=== PATIENT | male | born 1960 | race Caucasian/White ===

== ENCOUNTER → 2018-03-11 | Day surgery (SDC) | payer BC ==
[2018-03-09 16:26] VITALS: BMI 23.0
[~2018-03-11] MED LIST: LACTATED RINGERS 1,000 ML IV SCH; LIDOCAINE 1% 20 ML VIAL (10MG/ML) FOR IV START INTRADERMA PRN; LIDOCAINE 1% INJ 10MG/ML (20 ML MDV) ONE; PROPOFOL 10 MG/ML 20 ML VIAL IV ONE
--- NOTE | 2018-03-11 07:07 | P.GSHP ---
History of Present Illness H&P Date: 03/11/18 CHIEF COMPLAINT: Colon screen HISTORY OF PRESENT ILLNESS: The patient is a 57-year-old male who presents for colon screen. Lower endoscopy was offered for further evaluation and management. PAST MEDICAL HISTORY: Please see list. PAST SURGICAL HISTORY: Please see list. MEDICATIONS: Please see list. ALLERGIES: Please see list. SOCIAL HISTORY: No illicit drug use FAMILY HISTORY: No reports of Crohn disease or ulcerative colitis. REVIEW OF ORGAN SYSTEMS: CONSTITUTIONAL: No reports of fevers or chills. PHYSICAL EXAM: VITAL SIGNS: Stable GENERAL: Well-developed pleasant in no acute distress. HEENT: No scleral icterus. Extraocular movements grossly intact. Moist buccal mucosa. NECK: Supple without lymphadenopathy. CHEST: Unlabored respirations. Equal bilateral excursions. CARDIOVASCULAR: Regular rate and rhythm. Distal 2+ pulses. ABDOMEN: Soft, nontender, nondistended. MUSCULOSKELETAL: No clubbing, cyanosis, or edema. ASSESSMENT: 1. Colon screen. PLAN: 1. Recommend proceeding with a lower endoscopy Past Medical History Past Medical History: Eye Disorder, GERD/Reflux, Hypertension Additional Past Medical History / Comment(s): takes aldactone for fluid build up in elsi eyes,macular degeneration elsi eye,legally blind left eye History of Any Multi-Drug Resistant Organisms: None Reported Past Surgical History: Back Surgery, Orthopedic Surgery Additional Past Surgical History / Comment(s): Eye surg.; colonoscopy,pain procedures back,shoulder surg x4 Past Anesthesia/Blood Transfusion Reactions: No Reported Reaction Smoking Status: Never smoker - Past Family History Brother(s) Family Medical History: Cancer Medications and Allergies Home Medications Medication Instructions Recorded Confirmed Type Spironolactone 25 mg PO BID 11/15/15 03/09/18 History amLODIPine [Norvasc] 10 mg PO QAM 11/15/15 03/09/18 History Allergies Allergy/AdvReac Type Severity Reaction Status Date / Time No Known Allergies Allergy Verified 03/09/18 16:17
[2018-03-11 08:48] VITALS: TEMP 97.2
--- NOTE | 2018-03-11 09:42 | P.PCN ---
Date of Procedure: 03/11/18 Description of Procedure: PREOPERATIVE DIAGNOSIS: Colonoscopy screening. Family history colon cancer, youngest brother Personal history of colon polyps POSTOPERATIVE DIAGNOSIS: Colonoscopy screening. Family history colon cancer, youngest brother Personal history of colon polyps External hemorrhoids, grade 3 Sigmoid volvulus OPERATION: Colonoscopy to the splenic flexure. SURGEON: Jennifer Valadez MD. ANESTHESIA: MAC. INDICATIONS: The patient is a 57-year-old male who presents for colonoscopy screening. His last colonoscopy was 5 years ago. Benefits and risks were described and informed consent was obtained. DESCRIPTION OF PROCEDURE: The patient had undergone Gatorade, MiraLAX and Dulcolax prep. He had been brought into the operating room and laid in the left lateral decubitus position. After adequate intravenous sedation, the rectum was examined with 2% lidocaine jelly. External hemorrhoids were encountered. The prostate was smooth and without abnormalities. The rectal tone was within normal limits. No lesions were palpated in the rectal vault. An Olympus colonoscope was advanced through a tortuous sigmoid colon. Moderate twisting of the sigmoid colon was identified up to the splenic flexure. The patient was repositioned supine along his back to allow passage of the scope beyond the splenic flexure. Despite abdominal pressure and additional maneuvers, he had extremely tight tortuosity at the splenic flexure. The prep was excellent with clear visualization of the mucosal folds. Secondary to the tortuosity of the colon, high suspicion of sigmoid colonic volvulus was identified. The scope was removed with visualization of each mucosal fold. No scattered diverticulosis was encountered. No colonic polyps were found distal to the splenic flexure. No evidence of focal colitis was found. Retroflexion of the scope demonstrated grade 2 internal hemorrhoids without active bleeding or inflammation. The colon was desufflated. The patient had tolerated the procedure well. Withdrawal time was over 6 minutes. FINDINGS: Internal hemorrhoids, grade 2 External prolapsed hemorrhoids, grade 3 No arteriovenous malformations. No adenomatous polyps. No focal colitis. No sigmoid diverticulosis. Tortuosity of colon highly suspicious for colonic volvulus. RECOMMENDATIONS: Recommend barium enema, immediate. Will need repeat colonoscopy in 3 years, 2020, due to high personal and familial risks Plan - Discharge Summary New Discharge Prescriptions: No Action amLODIPine [Norvasc] 10 mg PO QAM Spironolactone 25 mg PO BID Discharge Medication List Spironolactone 25 mg PO BID 11/15/15 [History] amLODIPine [Norvasc] 10 mg PO QAM 11/15/15 [History]
[2018-03-11 09:46] VITALS: RESP 16
[2018-03-11 10:01] VITALS: BP 158/80; PULSE 60
--- NOTE | 2018-03-11 13:36 | FL ---
EXAMINATION TYPE: FL barium enema DATE OF EXAM: 03/11/2018 COMPARISON: NONE HISTORY: Incomplete colonoscopy to the splenic flexure with no biopsies. TECHNIQUE: A single contrast barium enema study is performed. 2 minutes and 15 seconds of fluoroscop y time was utilized with 50 images saved. FINDINGS: Industrial Cleaning Technician view of the abdomen shows overall non-obstructive bowel gas pattern gaseous distenti on the bowel from recent colonoscopy and surgical fusion of the lumbar spine. No evidence of any mass or polyp, obstructing or constricting lesion throughout the colon. Within the transverse colon a focal area of luminal narrowing was seen, however this area opens and appears pat ent on multiple images after further instillation of contrast much improving after supine positioning . Therefore this relates to colonic spasm. No persistent luminal narrowing is seen throughout the col on. No significant diverticular disease is noted. The terminal ileum was refluxed and appears within normal limits. IMPRESSION: Focal area of intermittent colonic spasm with no evidence of obstruction, mass, or diver ticular disease.
== END | disposition home or self-care (01) ==
LOC: ORWHC2ENDO 07:58
PROVIDERS: ATTEND Surgery Plastic and Reconstructive Surgery
DX: Z12.11 Encounter for screening for malignant neoplasm of colon (principal); K56.2 Volvulus; K64.4 Residual hemorrhoidal skin tags; K64.2 Third degree hemorrhoids; I10 Essential (primary) hypertension; K21.9 Gastro-esophageal reflux disease without esophagitis; Z79.899 Other long term (current) drug therapy; Z80.0 Family history of malignant neoplasm of digestive organs; Z86.010 Personal history of colon polyps
CPT/HCPCS: 45378; 74270

== ENCOUNTER → 2018-09-18 | Outpatient (CLI) | payer BC ==
[2018-09-18 16:51] LABS: Albumin 4.4 g/dL (3.80-4.90); Albumin/Globulin Ratio 2.44 (1.20-2.10); Anion Gap 9.8 mmol/L (4.00-12.00); Calcium 9.4 mg/dL (8.7-10.3); Carbon Dioxide 24.2 mmol/L (21.6-31.8); Globulin 1.8 g/dL (2.1-3.7); Potassium 4.4 mmol/L (3.5-5.5); Total Bilirubin 0.6 mg/dL (0.3-1.2); Total Protein 6.2 g/dL (6.2-8.2)
== END | disposition home or self-care (01) ==
LOC: LABWHC1 08:14
PROVIDERS: ATTEND Ophthalmology Retina Specialist
DX: H20.019 Primary iridocyclitis, unspecified eye (principal)
CPT/HCPCS: 36415; 80053

== ENCOUNTER 2020-01-19 07:40 | Day surgery (SDC) | payer BC ==
[2020-01-17 12:21] VITALS: BMI 23.0
[2020-01-19] MEDS ORDERED: DEXAMETHASONE SOD PHOSPHATE 10 MG/ML 1 ML VIAL IV ONE (07:47)
[2020-01-19] MEDS ORDERED: SCOPOLAMINE 1.5MG/72HR PATCH TRANSDERM ONE (07:47)
[2020-01-19] MEDS ORDERED: ONDANSETRON 4 MG/2 ML VIAL IVP ONE (07:47)
[2020-01-19] MEDS ORDERED: LIDOCAINE 1% (10MG/ML) FOR IV START INTRADERMA PRN (07:47)
[2020-01-19] MEDS ORDERED: LACTATED RINGERS 1,000 ML IV SCH (07:47)
[2020-01-19] MEDS ORDERED: LACTATED RINGERS 1,000 ML IV ONE ×2 (07:56→11:10)
[2020-01-19] MEDS ORDERED: MIDAZOLAM 2 MG/2 ML VIAL IVP ONE (10:13)
[2020-01-19] MEDS ORDERED: LIDOCAINE 1% INJ 10MG/ML (20 ML MDV) ONE (10:59)
[2020-01-19] MEDS ORDERED: SUCCINYLCHOLINE CHLORIDE 100 MG/5 ML SYR IV ONE (10:59)
[2020-01-19] MEDS ORDERED: ROPIVACAINE 5 MG/ML 30 ML VIAL ONE (10:59)
[2020-01-19] MEDS ORDERED: MIDAZOLAM 2 MG/2 ML VIAL ONE (10:59)
[2020-01-19] MEDS ORDERED: PROPOFOL 10 MG/ML 20 ML VIAL IV ONE (10:59)
[2020-01-19] MEDS ORDERED: fentaNYL (PF) 50 MCG/ML 2 ML AMP ONE (10:59)
--- NOTE | 2020-01-19 11:30 | P.ANPRN ---
Procedure Note - Anesthesia - Nerve Block Performed Right Popliteal Date of Procedure: 01/19/20 Procedure Start Time: 10:07 Procedure Stop Time: 10:18 Location of Patient: PreOp Indication: Acute Post-Operative Pain, Requested by Surgeon (Dr Woods) Sedation Type: Sedate with meaningful contact maintained Preparation: Sterile Prep Position: Left Lateral Catheter: None Needle Types: Pajunk Needle Gauge: 21 Ultrasound used to visualize needle placement: Yes Ultrasound used to observe medication spread: Yes Injectate: 0.5% Ropivacaine (see comment for volume) (20cc incrementally) Blood Aspirated: No Pain Paresthesia on Injection Noted: No Resistance on Injection: Normal Image Stored and Saved: Yes Events: Uneventful and Well Tolerated
--- NOTE | 2020-01-19 12:31 | P.OP ---
Date of Procedure: 01/19/20 Preoperative Diagnosis: Closed right supination adduction bimalleolar ankle fracture Postoperative Diagnosis: Same Procedure(s) Performed: 1. Open reduction and internal fixation right bimalleolar ankle fracture 2. Manual application of joint stress by physician for radiography, right ankle 3. Application of short leg splint by physician, right ankle Anesthesia: grover GUERRERO Surgeon: Ted Rashid Front Desk Assistant #1: Vernell Zaragoza Estimated Blood Loss (ml): 10 IV fluids (ml): 1,200 Pathology: none sent Condition: stable Disposition: PACU Indications for Procedure: The patient is a very pleasant previously healthy 59-year-old male who sustained a right ankle fracture a week ago. He was seen in our office where x-rays were taken showing an unstable ankle fracture. He was placed in a splint and follow- up was arranged in my office. I met with the patient and his to discuss treatment. I recommended open reduction internal fixation. We discussed the potential risks and competitions of surgery including and not limited to risk of anesthesia, infection, delayed wound healing, damage to local blood vessels or nerves, nonunion, malunion, symptomatically hardware, posttraumatic arthritis, hardware failure and late displacement, DVT, PE, other medical complications, and inability to regain preinjury level of function, need for further surgery, and possibly loss of life or limb. The patient and his understand that while these are the most common complications other, less common competitions are possible. They provided their verbal and written consent to go forward with surgery. Description of Procedure: The patient was identified in preoperative holding and the correct right ankle was marked with my initials. I reviewed the consent form with the patient and his . All their questions were answered. A block was given by anesthesia. The patient was then brought back to the operating room. He was positioned on the OR table where a general anesthetic and preoperative antibiotics were given. A tourniquet was applied the proximal aspect of the right leg. A bump was placed in the right buttock internally rotating the leg to neutral. A ramp was placed under the right leg to facilitate imaging. The left leg was secured to the table with foam and tape. The right leg was then prepped and draped in the standard sterile fashion. Prior to starting surgery timeout was performed identifying the correct patient, operative extremity, and procedure. The patient's leg was then elevated, exsanguinated with an Esmarch, and the tourniquet was inflated to 250 mmHg. I began by outlining a longitudinal incision directly over the medial malleolus. Skin incision made with a scalpel and dissection was carried down carefully to the subcutaneous tissue with tenotomy scissors. The periosteum over the medial malleolus was sharply incised. The apex of the fracture was identified. There is a small amount of comminution. The fracture margins were gently exposed. I booked open the vertical fracture and removed early consolidating hematoma. There is a small amount of marginal impaction which was removed. The apex of the fracture was then keyed in and held reduced with two 0.0625 K wires placed anteriorly and posteriorly. I then placed a 5 hole one third tubular plate to use as an anti-glide device over the fracture. A nonlocking 3.5 mm screw was placed just proximal to the fracture bringing the plate down to bone. I then placed a lag screw through the most distal hole of the plate at the level of the physeal scar. A final nonlocking screw was placed in the most proximal hole of the plate. Attention was then turned to lateral malleolus. With gentle stress of the ankle there is minimal displacement and with static nonstress views the f ibula fracture was essentially nondisplaced so rather than expose the fracture I elected to place a nonlocking lag screw through the tip of the fibula. A stab incision was made just distal to the tip of the fibula and a 3.5 mm drill was centered on the AP and lateral view. The drill was brought up to the fracture. A nonlocking 3.5 mm screw measuring 70 mm was placed generating excellent compression of the fracture. A manual external rotation stress x-ray was performed and showed no widening or displacement of the talus and the plafond. Both wounds were thoroughly irrigated and closed in layers. A sterile dressing was applied followed by a well-padded bulky Ellis splint with the ankle in neutral. The patient was awoken from his anesthetic, transferred to a gurney, and brought to recovery haven't helped procedure well. Vernell Zaragoza PA-C was required as a skilled business assistant for patient positioning, surgical exposure, retraction, placement of hardware, and application of splint.
--- NOTE | 2020-01-19 12:41 | XR ---
Fluoroscopy History: RIGHT ANKLE FX right ankle fx 2 min 12 sec FL
[2020-01-19 12:48] VITALS: TEMP 97.7
[2020-01-19] MEDS: HYDROmorphone 0.5 MG/0.5 ML SYRINGE IVP PRN ×2 (12:54→13:00)
[2020-01-19 13:29] VITALS: RESP 18
[2020-01-19 13:46] VITALS: BP 138/78; PULSE 67
== END 2020-01-19 14:05 | disposition home or self-care (01) ==
LOC: OR 07:40
PROVIDERS: ATTEND Orthopaedic Surgery
DX: S82.841A Displaced bimalleolar fracture of right lower leg, initial encounter for closed fracture (principal); I10 Essential (primary) hypertension; K21.9 Gastro-esophageal reflux disease without esophagitis; H91.90 Unspecified hearing loss, unspecified ear; Z79.899 Other long term (current) drug therapy; Z97.3 Presence of spectacles and contact lenses; Z98.890 Other specified postprocedural states; Z83.3 Family history of diabetes mellitus; Z82.49 Family history of ischemic heart disease and other diseases of the circulatory system; W11.XXXA Fall on and from ladder, initial encounter
CPT/HCPCS: 27814; 64450; 76942; 84132; 73610; C1713; J2250; J1100; J0690; J2405; J2001; J3010; J2795; J0330; J2704; J1170; 64445

== ENCOUNTER → 2024-03-17 | Outpatient (CLI) | payer BC ==
--- NOTE | 2024-03-17 11:43 | XR ---
EXAMINATION TYPE: XR ribs bilat w pa chest xray DATE OF EXAM: 03/17/2024 COMPARISON: NONE HISTORY: Pain TECHNIQUE: Frontal view of the chest and 8 views of the ribs are obtained bilaterally FINDINGS: Lungs are clear. There is no sizable pneumothorax or consolidation. Patient prominence of t he ascending aortic region. Postsurgical change vertebral column. Arthropathy of the shoulders. Previ ous surgery left shoulder. There appears to be cortical offset of the anterior margin of the left seventh, eighth and ninth ribs suspicious for fractures. Deformity involving the anterior margin of the right fifth and sixth ribs appear chronic. IMPRESSION: 1. There are mildly displaced fractures involving the anterolateral seventh, eighth and ninth ribs. 2. Deformities involving the anterior margin of the right fifth and sixth ribs appear more chronic. C orrelate with point tenderness to exclude hairline fracture.
== END | disposition home or self-care (01) ==
LOC: RADXRMAIN 11:06
PROVIDERS: ATTEND Nurse Practitioner Family
DX: M95.4 Acquired deformity of chest and rib (principal)
CPT/HCPCS: 71111

== ENCOUNTER 2024-03-18 17:23 | Emergency (ER) | payer BC ==
[2024-03-18 17:34] VITALS: BP 131/79; PULSE 80; RESP 18; TEMP 98.1
--- NOTE | 2024-03-18 17:54 | ED ---
Chest Pain HPI - General Chief Complaint: Chest Pain Stated Complaint: rib injury, sent by PCP Time Seen by Provider: 03/18/24 17:53 Source: patient Mode of arrival: ambulatory Limitations: no limitations - History of Present Illness Initial Comments: 63-year-old male sent by his PCP Dr. Russo for displaced rib fractures. Patient states that a few months ago he broke his ribs. States that a few days ago he was trying to help his daughter with some maintenance on her pool when he bent over and had a sudden increase in pain over the site of his rib fractures. He had an x-ray yesterday which showed the displaced rib fractures and was told to report to the ER by his PCP. Patient does have some increased pain with deep breaths and movement, however he is not short of breath. No dizziness. No lower extremity swelling. No fevers or cough. - Related Data Home Medications Medication Instructions Recorded Confirmed Spironolactone 25 mg PO BID 11/15/15 01/17/20 amLODIPine [Norvasc] 10 mg PO QAM 11/15/15 01/19/20 HYDROcodone/APAP 5-325MG [[place] 1 tab PO Q6HR PRN 01/17/20 01/19/20 5-325] Previous Rx's Medication Instructions Recorded Aspirin 325 mg PO DAILY #14 tab 01/19/20 Docusate [Colace] 100 mg PO BID #20 capsule 01/19/20 HYDROcodone/APAP 10-325MG [[place] 1 tab PO Q4HR PRN #30 tab 01/19/20 10-325] Allergies Allergy/AdvReac Type Severity Reaction Status Date / Time No Known Allergies Allergy Verified 01/17/20 12:11 Review of Systems ROS Statement: Those systems with pertinent positive or pertinent negative responses have been documented in the HPI. ROS Other: All systems not noted in ROS Statement are negative. Past Medical History Past Medical History: Eye Disorder, GERD/Reflux, Hypertension Additional Past Medical History / Comment(s): takes aldactone for fluid build up in elsi eyes,macular degeneration elsi eye,legally blind left eye, fx rt ankle 01/11/2020-has cast on. History of Any Multi-Drug Resistant Organisms: None Reported Past Surgical History: Back Surgery, Orthopedic Surgery Additional Past Surgical History / Comment(s): 3 surgeries rt shoudler(one arthroscopy), left shoulder surgrey x 1 for torn muscle, left eye laser surgery Past Anesthesia/Blood Transfusion Reactions: No Reported Reaction Past Psychological History: No Psychological Hx Reported Past Alcohol Use History: Occasional Past Drug Use History: None Reported - Past Family History Brother(s) Family Medical History: Cancer General Exam - General Exam Comments Initial Comments: Visual Physical Exam Vital signs reviewed General: Well-appearing, nontoxic, no acute distress. Head: Normocephalic, atraumatic Eyes: PERRLA, EOMI ENT: Airway patent Chest: Nonlabored breathing Skin: No visual rash, normal skin tone Neuro: Alert and oriented 3 Musculoskeletal: No gross abnormalities Limitations: no limitations General appearance: alert, in no apparent distress Head exam: Present: atraumatic, normocephalic Eye exam: Present: normal appearance, EOMI Neck exam: Present: normal inspection. Absent: meningismus Respiratory exam: Present: normal lung sounds bilaterally, chest wall tenderness. Absent: respiratory distress, wheezes, rales, rhonchi, stridor Cardiovascular Exam: Present: regular rate, normal rhythm, normal heart sounds. Absent: systolic murmur, diastolic murmur, rubs, gallop, clicks Extremities exam: Absent: pedal edema Neurological exam: Present: alert, oriented X3 Psychiatric exam: Present: normal affect, normal mood Skin exam: Present: warm, dry, normal color Course Vital Signs 03/18/24 17:27 Temperature 98.1 F Pulse Rate 80 Respiratory 18 Rate Blood Pressure 131/79 O2 Sat by Pulse 99 Oximetry Chest Pain MDM - MDM Was pt. sent in by a medical professional or institution (Dr. PA, APPLIED PSYCHOLOGY CHAIR, urgent care, hospital, or residential...) When possible be specific @ -Sent by PCP Did you speak to anyone other than the patient for history (EMS, parent, family, police, friend...)? What history was obtained from this source @ -No Did you review nursing and triage notes (agree or disagree)? Why? @ -I reviewed and agree with nursing and triage notes Were old charts reviewed (outside hosp., previous admission, EMS record, old EKG, old radiological studies, urgent care reports/EKG's, residential records)? Report findings @ -X-ray from yesterday reviewed and there are mildly displaced fractures involving the anterior lateral seventh eighth and ninth ribs. Deformities involving the anterior margin of the right fifth and sixth ribs appear more chronic. Correlate with point tenderness to exclude hairline fracture. Differential Diagnosis (chest pain, altered mental status, abdominal pain women, abdominal pain men, vaginal bleeding, weakness, fever, dyspnea, syncope, headache, dizziness, GI bleed, back pain, seizure, CVA, palpatations, mental health, musculoskeletal)? @ -Differential includes muscle strain, rib fracture, pneumothorax, hemothorax, this is not an all-inclusive list EKG interpreted by me (3pts min.). @ -As above X-rays interpreted by me (1pt min.). @ -Chest x-ray shows no definite acute radiographic process CT interpreted by me (1pt min.). @ -None done U/S interpreted by me (1pt. min.). @ -None done What testing was considered but not performed or refused? (CT, X-rays, U/S, labs)? Why? @ -None What meds were considered but not given or refused? Why? @ -None Did you discuss the management of the patient with other professionals (professionals i.e. , PA, APPLIED PSYCHOLOGY CHAIR, lab, RT, psych nurse, rn social services, supervisor of research, teacher, supply requirements officer, senior case manager)? Give summary @ -No Was smoking cessation discussed for >3mins.? @ -No Was critical care preformed (if so, how long)? @ -No Were there social determinants of health that impacted care today? How? (Homelessness, low income, unemployed, alcoholism, drug addiction, transport ation, low edu. Level, literacy, decrease access to med. care, long-term, rehab)? @ -No Was there de-escalation of care discussed even if they declined (Discuss DNR or withdrawal of care, Hospice)? DNR status @ -No What co-morbidities impacted this encounter? (DM, HTN, Smoking, COPD, CAD, Cancer, CVA, ARF, Chemo, Hep., AIDS, mental health diagnosis, sleep apnea, morbid obesity)? @ -None Was patient admitted / discharged? Hospital course, mention meds given and route, prescriptions, significant lab abnormalities, going to OR and other pertinent info. @ -Discharge. 63-year-old male sent by his PCP for displaced rib fractures. He states that he has previous rib fractures and the other day injured himself while working on a pool. No shortness of breath. Previous x-ray was reviewed which showed mildly displaced rib fractures of the seventh eighth and ninth left ribs. Chest x-rays obtained today which shows lungs to be clear with no pneumothorax or pleural effusion. The skeletal structures and soft tissues are negative for acute findings. No displaced rib fractures evident on this chest radiographic examination. The patient's vital signs are WNL. I educated the patient on today's results. We had an extensive discussion regarding rib fractures and proper treatment at home. I informed the patient that I would be providing him with lidocaine patches and incentive spirometer to prevent pneumonia. Patient was agitated and walked out of the ER waiting room without discharge paperwork or incentive spirometer. I discussed this case with my attending Dr. Holt Undiagnosed new problem with uncertain prognosis? @ -No Drug Therapy requiring intensive monitoring for toxicity (Heparin, Nitro, Insulin, Cardizem)? @ -No Were any procedures done? @ -No Diagnosis/symptom? @ -Chest wall pain, rib fractures Acute, or Chronic, or Acute on Chronic? @ -Acute on chronic Uncomplicated (without systemic symptoms) or Complicated (systemic symptoms)? @ -Uncomplicated Side effects of treatment? @ -No Exacerbation, Progression, or Severe Exacerbation? @ -No Poses a threat to life or bodily function? How? (Chest pain, [place], MS, pneumonia, PE, COPD, DKA, ARF, appy, cholecystitis, CVA, Diverticulitis, Homicidal, Suicidal, threat to staff... and all critical care pts) @ -Unlikely at this time Disposition Clinical Impression: Rib fracture Disposition: HOME SELF-CARE Condition: Good Instructions (If sedation given, give patient instructions): Rib Fracture (ED), Rib Contusion (ED) Additional Instructions: Follow-up with your PCP. Report back to ER with any new or worsening symptoms. You should be utilizing incentive spirometer. Is patient prescribed a controlled substance at d/c from ED?: No Referrals: Anoop Russo MD [Primary Care Provider] - 1-2 days Time of Disposition: 19:25
--- NOTE | 2024-03-18 18:45 | XR ---
EXAMINATION: XR chest 2V: 03/18/2024 6:14 PM CLINICAL INDICATION: rib fractures TECHNIQUE: Departmental protocol COMPARISON: Bilateral ribs radiographic series 03/17/2024 1116 hours FINDINGS: The lungs appear to be clear. There is no pneumothorax or pleural effusion. The cardiac silhouette is not enlarged. The skeletal structures and soft tissues are negative for acute findings. No displaced rib fractures evident on this chest radiographic examination. IMPRESSION: No definite acute radiographic process.
== END 2024-03-18 19:32 | disposition home or self-care (01) ==
LOC: EC 17:23
DX: S22.42XA Multiple fractures of ribs, left side, initial encounter for closed fracture (principal); X50.9XXA Other and unspecified overexertion or strenuous movements or postures, initial encounter
CPT/HCPCS: 71046; 99283

== ENCOUNTER → 2024-03-26 | Outpatient (CLI) | payer BC ==
--- NOTE | 2024-03-26 12:32 | CT ---
EXAMINATION TYPE: CT chest wo con DATE OF EXAM: 03/26/2024 COMPARISON: None HISTORY: chest pain CT DLP: [address] of the chest was performed with lung and mediastinal window settings submitted. The la ck of contrast limits evaluation of the vascular, mediastinal and parenchymal structures including th e upper abdomen. LUNGS: The lungs are clear and free of infiltrate. No atelectasis. No pulmonary nodule or mass is de tected. No pleural effusion. No CT evidence of interstitial lung disease. MEDIASTINUM/SELINA: Thoracic aorta is of normal caliber with limited evaluation given lack of contrast . The heart is not enlarged. No evidence for mediastinal mass. No lymph nodes greater than 1cm. UPPER ABDOMEN: No significant abnormality is seen. OTHER: No significant other abnormality. IMPRESSION: 1. No acute process seen account for the patient's chest pain. Correlate clinically.
== END | disposition home or self-care (01) ==
LOC: RADCTMAIN 11:48
PROVIDERS: ATTEND Thoracic Surgery (Cardiothoracic Vascular Surgery)
DX: R07.9 Chest pain, unspecified (principal)
CPT/HCPCS: 71250

== ENCOUNTER → 2024-12-10 | Outpatient (CLI) | payer BC ==
--- NOTE | 2024-12-10 11:56 | CT ---
EXAMINATION TYPE: CT brain wo con CT DLP: 1086.6 mGycm, Automated exposure control for dose reduction was used. DATE OF EXAM: 12/10/2024 11:48 AM COMPARISON: None. CLINICAL INDICATION:Male, 64 years old with history of S09.90XA UNSPECIFIED INJURY OF HEAD, INITIAL E NCOU, Fell on ice x2ws ago. Hit back of head. On blood thinners. Unknown LOC. Severe ALLISON's since. Pt a lso states his ears have been bothering him. TECHNIQUE: Brain: Multiple axial CT images of the brain were obtained without IV contrast. . Coronal and sagitta l reformats reviewed. FINDINGS: Brain: Extra-axial spaces: No abnormal extra-axial fluid collections. Ventricular system: Within normal limits Cerebral parenchyma: Cerebral atrophy. No acute intraparenchymal hemorrhage or mass effect. The perry -white junction is well differentiated. Scattered hypoattenuating areas are seen within the periventr icular subcortical white matter. Cerebellum: Unremarkable. Mass effect: No evidence of midline shift. Intracranial vasculature: Atherosclerotic calcifications of the intracranial vessels. Soft tissues: Normal. Calvarium/osseous structures: No depressed skull fracture. Paranasal sinuses and mastoid air cells: The mastoid air cells are clear. Minimal mucosal thickening of the inferior left maxillary sinus. The remaining paranasal sinuses are clear. Visualized orbits: Bilateral aphakia IMPRESSION: 1. No acute intracranial process. 2. Nonspecific white matter changes, likely secondary to chronic small vessel ischemic disease. [facility], , 12/10/2024 11:53 AM
== END | disposition home or self-care (01) ==
LOC: RADCTMAIN 11:33
PROVIDERS: ATTEND Family Medicine
DX: S09.90XA Unspecified injury of head, initial encounter (principal); R90.82 White matter disease, unspecified
CPT/HCPCS: 70450